=== PATIENT | female | born 1970 | race Caucasian/White ===

== ENCOUNTER 2017-08-30 07:36 | Day surgery (SDC) | payer BC ==
[~2017-08-30 07:36] MED LIST: Lactated Ringers 1,000 ML IV SCH; Sodium Chloride 0.9% 10 ML Syringe FLUSH PRN
[2017-08-30] MEDS ORDERED: Propofol 200 MG/20 ML SDV IV ONE (09:00)
[2017-08-30] MEDS ORDERED: Midazolam 1 MG/ML 2 ML SDV IV ONE (09:00)
[2017-08-30] MEDS ORDERED: Lidocaine 2% 100 MG/5 ML Syringe IVPUSH ONE (09:00)
--- NOTE | 2017-08-30 09:14 | PCM.HPR ---
H & P Addendum review - H & P Addendum Review Date of Original H & P: 08/22/17 Date Reviewed: 08/30/17 Time Reviewed: 09:00 Patient was Examined: No Changes
--- NOTE | 2017-08-30 09:43 | PCM.OPNOTE ---
- General Post-Op/Procedure Note Date of Surgery/Procedure: 08/30/17 Operative Procedure(s): EGD with Bx Findings: Loose LES Pre Op Diagnosis: GERD with Dysphasia Post-Op Diagnosis: Same Anesthesia Technique: SCOTT Primary Surgeon: Mamadou Islas Anesthesia Provider: Tabitha Plasencia Complications: None Condition: Good
--- NOTE | 2017-08-30 13:23 | OR ---
DATE OF OPERATION: 08/30/2017 SURGEON: Mamadou Islas MD PREOPERATIVE DIAGNOSES: 1. Gastroesophageal reflux disease. 2. Dysphagia. POSTOPERATIVE DIAGNOSIS: Normal EGD. PROCEDURE: EGD with biopsy. ANESTHESIA: IV sedation. DESCRIPTION OF PROCEDURE: The patient was brought to the procedure room, where she was placed on her left side and IV sedation administered. Oral bite block was placed and the upper endoscope advanced into the esophagus under direct vision without difficulty. Vocal cords were viewed and appeared normal and approximate completely. I did not see any abnormalities in the hypopharynx. The scope was then advanced through the esophagus to the third portion of the duodenum. Duodenum and pylorus were normal. Antrum and body were normal, other than some hyperplastic polyps present in the body. Retroflexion revealed a normal-appearing fundus. Lower esophageal sphincter was somewhat loose, but squamocolumnar junction appeared normal. I did not see any evidence of reflux esophagitis. I did take 4 random biopsies from her distal esophagus because of her symptoms. Air was removed from the stomach, and the scope withdrawn through the remaining esophagus, which appears normal. The patient tolerated the procedure well and returned to Recovery in a stable condition. /[id number] ANUSHA/KIMBERLI
== END 2017-08-30 10:39 | disposition home or self-care (01) ==
LOC: FB.SDS 07:36
PROVIDERS: ATTEND Surgery
DX: K20.9 Esophagitis, unspecified (principal); K21.9 Gastro-esophageal reflux disease without esophagitis; K63.5 Polyp of colon; E89.0 Postprocedural hypothyroidism; F33.42 Major depressive disorder, recurrent, in full remission; R47.02 Dysphasia; Z85.850 Personal history of malignant neoplasm of thyroid; Z79.899 Other long term (current) drug therapy; Z88.8 Allergy status to other drugs, medicaments and biological substances
CPT/HCPCS: 43239; 81025; 88305; J2250; J2704; J7120